=== PATIENT | female | born 2000 | race Caucasian/White ===

== ENCOUNTER 2019-02-07 16:08 | Emergency (ER) | payer OTHER ==
--- NOTE | 2019-02-07 16:45 | EDPHY ---
H & P Time Seen by Provider: 02/07/19 16:36 HPI/ROS: Chief complaint. Chest tightness, difficulty breathing HPI. 18-year-old female presents emergency department with upper respiratory symptoms for 2 weeks. She has some chest tightness. It feels like she can't take a full deep breath. Hurts to cough. She has some dyspnea on exertion. Cough is productive greenish sputum. Subjective fever. No unusual leg pain or swelling. No recent travel or exposure to Infectious Disease however she lives in dormitory at [facility]. No history of asthma. No abdominal pain or vomiting or diarrhea. No rash. ROS 10 systems were reviewed and negative with the exception of the elements mentioned in the history of present illness Past Medical/Surgical History: [place], benign tumor Social History: Single, nonsmoker, no alcohol Smoking Status: Never smoked Physical Exam: General Appearance: Alert pleasant well-developed female mild distress vital signs are stable. O2 saturation room air is 94% Eyes: Pupils equal and round no pallor or injection. ENT, tympanic membranes are normal. Pharynx slightly injected without exudate. Respiratory: No retractions. Inspiratory expiratory wheezing and rhonchi. Cardiovascular: Regular rate and rhythm. Gastrointestinal: Abdomen is soft and nontender, no masses, bowel sounds normal. Neurological: Awake and alert, sensory and motor exams grossly normal. Skin: Warm and dry, no rashes. Musculoskeletal: Neck is supple nontender. Extremities symmetrical, full range of motion. Psychiatric: Patient is oriented X 3, there is no agitation. Constitutional: Initial Vital Signs Temperature (C) 36.8 C 02/07/19 16:19 Heart Rate 88 02/07/19 16:19 Respiratory Rate 18 02/07/19 16:19 Blood Pressure 93/67 L 02/07/19 16:19 O2 Sat (%) 94 02/07/19 16:19 O2 Delivery Mode Room Air Allergies/Adverse Reactions: No Known Allergies Allergy (Unverified 02/07/19 16:18) Home Medications: Medication Instructions Recorded Adelita Allergy 02/07/19 Azithromycin [Zithromax] 250 mg PO DAILY #6 tab 02/07/19 Flonase Allergy Relief 02/07/19 Montelukast Sodium 02/07/19 Mucinex 02/07/19 Sudafed 12 Hour 02/07/19 Medical Decision Making - Diagnostics Imaging Results: Imaging Impressions Chest X-Ray 02/07/19 17:11 Impression: 1. Right middle lobe pneumonia Chest x-ray interpreted by me shows a right middle lobe pneumonia Procedures: DuoNeb updraft. Prednisone orally Zithromax in the ED ED Course/Re-evaluation: Re-evaluation 6:15 p.m. Patient is feeling much better. Listening to her lungs now really quite clear without wheezes or rales or rhonchi noted. Patient and I discussed imaging study results, treatment plan. She feels comfortable being treated as an outpatient. We discussed criteria for return importance of follow-up and further evaluation. She expresses understanding and agreement Differential Diagnosis: I considered pneumonia, bronchitis, pneumothorax - Data Points Medications Given: Discontinued Medications Albuterol/Ipratropium (Duoneb) 3 ml IH EDNOW ONE Stop: 02/07/19 17:12 Last Admin: 02/07/19 17:24 Dose: 3 ml Azithromycin (Zithromax) 500 mg PO EDNOW ONE PRN Reason: Protocol Stop: 02/07/19 17:34 Last Admin: 02/07/19 17:41 Dose: 500 mg Prednisone (Prednisone) 60 mg PO EDNOW ONE Stop: 02/07/19 17:12 Last Admin: 02/07/19 17:23 Dose: 60 mg Departure - Departure Disposition: Home, Routine, Self-Care Clinical Impression: Pneumonia Qualifiers: Pneumonia type: due to unspecified organism Laterality: right Lung location: middle lobe of lung Qualified Code(s): J18.1 - Lobar pneumonia, unspecified organism Condition: Good Instructions: Community Acquired Pneumonia (ED) Additional Instructions: Regular meals. Drink plenty of fluids and stay hydrated. Try to get good sleep. Use your inhaler 2 puffs every 4 hr while awake for the next 2-3 days. It will help with breathing Zithromax as the antibiotic. Begin 1 pill daily for the next 4 days beginning tomorrow. We gave you the 1st 2 pills in the ER tonight Return for worsening symptoms Recheck in 2 days if not improved Referrals: NONE *PRIMARY CARE P,. [Primary Care Provider] - As per Instructions [facility] [Outside] - 2-3 days, if not improved Prescriptions: Azithromycin [Zithromax] 250 mg PO DAILY #6 tab
[2019-02-07] MEDS ORDERED: predniSONE 20 MG TAB PO ONE (17:11)
[2019-02-07] MEDS ORDERED: IPRATROPIUM/ALBUTEROL 3 ML DEYVIAL IH ONE (17:11)
[2019-02-07] MEDS ORDERED: AZITHROMYCIN 250 MG TAB PO ONE (17:33)
[2019-02-07 18:46] VITALS: BP 125/83
== END 2019-02-07 18:45 | disposition home or self-care (01) ==
LOC: EDSEX 16:08
DX: J18.1 Lobar pneumonia, unspecified organism (principal)
CPT/HCPCS: J7512

== ENCOUNTER 2019-02-11 14:44 | Emergency (ER) | payer OTHER ==
[2019-02-11 16:25] LABS: PLATELET COUNT 341 10^3/uL (150-400)
[2019-02-11] MEDS ORDERED: IPRATROPIUM/ALBUTEROL 3 ML DEYVIAL IH ONE (16:54)
--- NOTE | 2019-02-11 16:57 | EDPHY ---
H & P Stated Complaint: Recent diagnosis of pnuemonia, symptoms getting worse. Time Seen by Provider: 02/11/19 16:15 HPI/ROS: CHIEF COMPLAINT: Persistent cough, shortness of breath HISTORY OF PRESENT ILLNESS: 18-year-old female presents with cough and shortness of breath. Onset of a productive cough 10 days ago, without associated URI symptoms. She was seen in this emergency department 5 days ago and diagnosed with pneumonia by chest x-ray. She was placed on Zithromax, which she completed today. She has had gradually increasing shortness of breath with exertion, right lower chest pain and persistent cough. REVIEW OF SYSTEMS: complete 10 point ROS reviewed and is negative except for the noted elements in the HPI - Personal History Current Tetanus Diphtheria and Acellular Pertussis (TDAP): Yes - Medical/Surgical History Hx Asthma: No Hx Chronic Respiratory Disease: No Hx Diabetes: No Hx Cardiac Disease: No Hx Renal Disease: No Hx Cirrhosis: No Hx Alcoholism: No Hx HIV/AIDS: No Hx Splenectomy or Spleen Trauma: No Other PMH: MONO/ BENIGN TUMOR. - Social History Smoking Status: Never smoked Alcohol Use: Sober Drug Use: None Additional Social History: [employer] student - Physical Exam Exam: General Appearance: Alert, pleasant, nontoxic appearing Eyes: Pupils equal and round, no conjunctival pallor or injection ENT, Mouth: Mucous membranes moist Neck: Normal inspection Respiratory: Bilateral expiratory wheezing, rhonchi right lower lung field Cardiovascular: Regular rate and rhythm Gastrointestinal: Abdomen is soft and nontender Neurological: A&O, nonfocal, normal gait Skin: Warm and dry Extremities: Normal inspection Psychiatric: Tearful at times Constitutional: Initial Vital Signs Temperature (C) 36.9 C 02/11/19 14:59 Heart Rate 85 02/11/19 14:59 Respiratory Rate 18 02/11/19 14:59 Blood Pressure 129/73 H 02/11/19 14:59 O2 Sat (%) 99 02/11/19 14:59 O2 Delivery Mode Room Air Allergies/Adverse Reactions: No Known Allergies Allergy (Unverified 02/07/19 16:18) Home Medications: Medication Instructions Recorded Adelita Allergy 02/07/19 Azithromycin [Zithromax] 250 mg PO DAILY #6 tab 02/07/19 Flonase Allergy Relief 02/07/19 Montelukast Sodium 05/02/19 Mucinex 02/07/19 Sudafed 12 Hour 02/07/19 Albuterol [Proventil Inhaler HFA 2 puffs IH QID PRN #1 mdi 02/11/19 (*)] Doxycycline Hyclate 100 mg PO BID #20 tablet 02/11/19 predniSONE 1 tab PO DAILY #15 tab 02/11/19 Medical Decision Making - Diagnostics Imaging Results: Imaging Impressions Chest X-Ray 02/11/19 16:16 Impression: Right middle lobe pneumonia with continued follow-up recommended to document complete resolution. Imaging: I viewed and interpreted images myself ED Course/Re-evaluation: This patient presents with worsening symptoms after recent diagnosis of pneumonia. Vital signs are normal and chest exam reveals diffuse wheezing. A DuoNeb was given on patient arrival. She feels much better after the DuoNeb. Oxygen saturation 99% on room air and lungs are clear to auscultation. Chest x- ray reveals a persistent infiltrate, as expected. No worsening of infiltrate. I will give her doxycycline and steroids. I will add a spacer for her albuterol inhaler. No evidence for worsening pneumonia. Once bronchospasm has improved, pt should start to feel better. Warning signs discussed. - Data Points Laboratory Results: Laboratory Results 02/11/19 16:17 02/11/19 16:17 02/11/19 02/11/19 02/11/19 16:54 16:17 16:17 WBC RBC Hgb Hct MCV MCH MCHC RDW Plt Count MPV Neut % (Auto) Lymph % (Auto) [place] % (Auto) Eos % (Auto) Baso % (Auto) Nucleat RBC Rel Count Absolute Neuts (auto) Absolute Lymphs (auto) Absolute Monos (auto) Absolute Eos (auto) Absolute Basos (auto) Absolute Nucleated RBC Immature Gran % Immature Gran # D-Dimer 0.52 ug/mLFEU H ug/mLFEU (0.00-0.50) VBG Lactic Acid Sodium 137 mEq/L mEq/L (135-145) Potassium 4.3 mEq/L mEq/L (3.5-5.2) Chloride 105 mEq/L mEq/L (97-110) Carbon Dioxide 23 mEq/l mEq/l (22-31) Anion Gap 9 mEq/L mEq/L (6-14) BUN 15 mg/dL mg/dL (7-23) Creatinine 0.7 mg/dL mg/dL (0.6-1.0) Estimated GFR > 60 Glucose 81 mg/dL mg/dL (70-100) Calcium 9.3 mg/dL mg/dL (8.5-10.4) Beta HCG, Qual NEGATIVE 02/11/19 02/11/19 16:17 16:17 WBC 4.88 10^3/uL 10^3/uL (3.80-9.50) RBC 4.67 10^6/uL 10^6/uL (4.18-5.33) Hgb 12.6 g/dL g/dL (12.6-16.3) Hct 40.1 % % (38.0-47.0) MCV 85.9 fL fL (81.5-99.8) MCH 27.0 pg L pg (27.9-34.1) MCHC 31.4 g/dL L g/dL (32.4-36.7) RDW 13.5 % % (11.5-15.2) Plt Count 341 10^3/uL 10^3/uL (150-400) MPV 9.5 fL fL (8.7-11.7) Neut % (Auto) 48.7 % % (39.3-74.2) Lymph % (Auto) 38.9 % % (15.0-45.0) [place] % (Auto) 9.2 % % (4.5-13.0) Eos % (Auto) 1.8 % % (0.6-7.6) Baso % (Auto) 0.6 % % (0.3-1.7) Nucleat RBC Rel Count 0.0 % % (0.0-0.2) Absolute Neuts (auto) 2.37 10^3/uL 10^3/uL (1.70-6.50) Absolute Lymphs (auto) 1.90 10^3/uL 10^3/uL (1.00-3.00) Absolute Monos (auto) 0.45 10^3/uL 10^3/uL (0.30-0.80) Absolute Eos (auto) 0.09 10^3/uL 10^3/uL (0.03-0.40) Absolute Basos (auto) 0.03 10^3/uL 10^3/uL (0.02-0.10) Absolute Nucleated RBC 0.00 10^3/uL 10^3/uL (0-0.01) Immature Gran % 0.8 % % (0.0-1.1) Immature Gran # 0.04 10^3/uL 10^3/uL (0.00-0.10) D-Dimer VBG Lactic Acid 0.8 mmol/L mmol/L (0.7-2.1) Sodium Potassium Chloride Carbon Dioxide Anion Gap BUN Creatinine Estimated GFR Glucose Calcium Beta HCG, Qual Microbiology Results: MICROBIOLOGY 02/11/19 16:45 Nasal, Sinus - Swab Respiratory Panel (PCR) - Final No Organism Detected By Pcr Medications Given: Discontinued Medications Albuterol/Ipratropium (Duoneb) 3 ml IH EDNOW ONE Stop: 02/11/19 16:55 Last Admin: 02/11/19 17:09 Dose: 3 ml Departure - Departure Disposition: Home, Routine, Self-Care Clinical Impression: Pneumonia Qualifiers: Pneumonia type: due to unspecified organism Laterality: right Lung location: middle lobe of lung Qualified Code(s): J18.1 - Lobar pneumonia, unspecified organism Condition: Good Instructions: Bacterial Pneumonia (ED) Additional Instructions: Drink plenty of fluids and get plenty of sleep. Use the albuterol inhaler with a spacer 4 times daily. Take the antibiotics and steroids as prescribed. Followup in 3-4 days for recheck. Return for worsening symptoms or any concerns. Referrals: William Luna MD [Medical Doctor] - As per Instructions Prescriptions: Albuterol [Proventil Inhaler HFA (*)] 2 puffs IH QID PRN #1 mdi PRN Reason: Short Of Breath/Dyspnea Doxycycline Hyclate 100 mg PO BID #20 tablet predniSONE 1 tab PO DAILY #15 tab
[2019-02-11 18:14] VITALS: BP 108/71
== END 2019-02-11 18:12 | disposition home or self-care (01) ==
DX: J18.1 Lobar pneumonia, unspecified organism (principal)